=== PATIENT | female | born 1970 | race Asian ===

== ENCOUNTER 2023-03-17 06:37 | Day surgery (SDC) | payer OTHER ==
[~2023-03-17] VITALS: Ht 157.5 cm; Wt 52.6 kg
[2023-03-17] MEDS ORDERED: MEPERIDINE 100 MG INJ. 100 MG/ML VIAL ONE (06:54)
[2023-03-17] MEDS ORDERED: SIMETHICONE 40 MG/0.6 ML ML ONE (06:54)
[2023-03-17] MEDS ORDERED: MIDAZOLAM HCL 5 MG/5 ML VIAL ONE (06:55)
[2023-03-21 10:44] VITALS: BP_SYST 131; PULSE 78; RESP 18; TEMP 98.2; O2SAT 100
== END 2023-03-17 10:14 | disposition home or self-care (01) ==
LOC: SDS 06:37 → SMU 06:38 → SDS 10:14
PROVIDERS: ATTEND Internal Medicine Gastroenterology
DX: R19.4 Change in bowel habit (principal); K62.5 Hemorrhage of anus and rectum; K64.8 Other hemorrhoids
CPT/HCPCS: 45378; 99152; G0378; J2250; J2175